=== PATIENT | male | born 1965 | race Caucasian/White ===

== ENCOUNTER 2021-04-18 16:50 | Emergency (ER) | payer BC, SELFPAY ==
--- NOTE | ~2021-04-18 | XR_ITS ---
EXAMINATION: XR abdomen/kub 1V DATE: 04/18/2021 18:02 INDICATION: Diarrhea. Low and mid abdominal pain. TECHNIQUE: A supine view of the abdomen on 2 radiographs was obtained. COMPARISON: CT abdomen and pelvis 02/17/2017 FINDINGS: There are no dilated loops of bowel. There is a small volume of stool in the colon. There i s no visible urolithiasis. IMPRESSION: 1. Normal bowel gas pattern. Reviewed, dictated and finalized at location A. SETTER
--- NOTE | 2021-04-18 17:38 | ED.NAVMDI ---
HPI - Nausea/Vomiting/Diarrhea General Chief complaint: Abdominal Pain Stated complaint: diarrhea Time Seen by Provider: 04/18/21 17:38 Source: patient and RN notes reviewed History of Present Illness HPI Narrative: Patient is a 55-year-old male who presents the urgent care with complaints of diarrhea for the last month and a half. Patient states that worse in the morning and in the evening. Patient states that he is attempted to change his diet and eliminate dairy and gluten and nothing has changed the occurrence of the diarrhea. Patient states that he does have a lot of gas buildup and gets bloated at times. Reports of lower abdominal cramping. Denies of any fevers. Denies of any nausea or vomiting. Patient states he did have a colonoscopy after the age of 49 and everything was clear. No other acute complaints. Denies of bloody diarrhea. No acute distress noted. Patient aware of the plan of care. Some parts of this dictation were generated by voice recognition software and may contain typographical and/or grammatical inaccuracies. Related Data Home Medications Medication Instructions Recorded Confirmed No Home Medications 04/18/21 04/18/21 Allergies Allergy/AdvReac Type Severity Reaction Status Date / Time No Known Allergies Allergy Verified 04/18/21 17:42 Review of Systems Review of Systems: CONSTITUTIONAL: Denies fever, chills, or sweats. EYES: Denies visual changes, redness, or discharge. ENT: Denies rhinorrhea, congestion, sore throat, or otalgia. CARDIOVASCULAR: Denies chest pain, palpitations, or edema. RESPIRATORY: Denies cough or dyspnea. GASTROINTESTINAL: Reports of intermittent diarrhea with lower abdominal pain and bloating without nausea or vomiting GENITOURINARY: Denies dysuria or hematuria. SKIN: Denies rash or itching. MUSCULOSKELETAL: Denies back pain, joint pain, or myalgia. NEUROLOGIC: Denies headache, numbness, or weakness. All other systems reviewed are negative, except as documented in HPI. [facility] Family History Family History (Updated 01/13/14 @ 07:13 by DOCTOR UNKNOWN) Father Hypertension Family history of rheumatoid arthritis Family history of malignant neoplasm of esophagus Patient's father is Grandparent Cerebrovascular accident Family history of heart disease in male family member before age 55 Social History Social History Smoking status: Never smoker Alcohol intake: current Comments At the time of my signature, I reviewed and agree with the nursing past medical, surgical, social, and family history. There is no relevant family history pertinent to the patient complaint. Exam Narrative: GENERAL: This is a well-nourished, well-developed patient, in no apparent distress. HEAD: normocephalic, atraumatic. EYES: PERRL. Sclera clear/white. Vision is grossly intact. EARS: External ears normal NOSE: External nose normal with no obvious nasal discharge, nares without redness, no rhinorrhea. THROAT: Mucous membranes moist NECK: Neck supple CARDIOVASCULAR: Regular rate and rhythm without murmurs, gallops, or rubs. RESPIRATORY: Clear to auscultation. Breath sounds equal bilaterally. No wheezes, rales, or rhonchi. GASTROINTESTINAL: Abdomen soft, mild to moderate lower abdominal tenderness more notable to the left lower, nondistended. Bowel sounds are hyperactive to right upper, hypoactive to lower right and left, near absent to the left upper quadrant. No guarding. SKIN: warm, intact with no suspicious lesions or rash, good texture and turgor. NEURO: awake, alert, and oriented to person, place and time. There were no obvious focal neurologic abnormalities. EXTREMITIES: No clubbing, cyanosis, or edema. Course Vital Signs Vital signs: Vital Signs Temperature 97.3 F L 04/18/21 17:45 Pulse Rate 58 L 04/18/21 17:45 Respiratory Rate 58 H 04/18/21 17:45 Blood Pressure 124/96 H 04/18/21 17:45 Pulse Oximetry 100 04/18/21 17:45 Tem
[2021-04-18 17:45] VITALS: BP 124/96; PULSE 58; RESP 58; TEMP 36.3; O2SAT 100
== END 2021-04-18 18:18 | disposition home or self-care (01) ==
PROVIDERS: Emergency Provider Nurse Practitioner Family
DX: R19.7 Diarrhea, unspecified (principal)
CPT/HCPCS: 74018; 99213; G0463

== ENCOUNTER 2021-05-04 09:00 | Outpatient (CLI) | payer BC, SELFPAY ==
--- NOTE | ~2021-05-04 | CT_ITS ---
EXAMINATION: CT abdomen pelvis w con INDICATION: Lower abdominal pain and weight loss TECHNIQUE: Computed tomographic images of the abdomen and pelvis were obtained after the administrati on of 100 cc of Omnipaque 350 intravenous contrast. The dose-length product (DLP) was 692.26 mGy-cm. Automated exposure control and iterative reconstruction technique were employed. COMPARISON: 02/17/2017 FINDINGS: Minimal dependent atelectasis is present in the lung bases. The heart size is normal. Small nodules of the right lower lobe are stable and consistent with old granulomatous disease. There is a small sliding hiatal hernia. The liver, spleen, pancreas, gallbladder, and adrenal glands are normal . There is mild chronic atrophy of the right kidney. No pathologically enlarged abdominal or pelvic l ymph nodes are identified. There is no free intraperitoneal gas or evidence of bowel obstruction. The appendix is normal. There is a chronic unchanged sclerotic lesion of the left inferior pubic ramus, consistent with a bone island. A tiny left inguinal hernia containing fat is noted. There is mild lum bar spondylosis. IMPRESSION: 1. No CT correlate for the patient's symptoms. Reviewed, dictated and finalized at location A. F [employer]ICER
[2021-05-04 09:28] LABS: Estimated Glomerular Filt Rate 52
== END 2021-05-04 09:01 | disposition home or self-care (01) ==
PROVIDERS: PCP Nurse Practitioner; Visit Provider Nurse Practitioner
DX: R10.30 Lower abdominal pain, unspecified (principal); R63.4 Abnormal weight loss; R19.7 Diarrhea, unspecified
CPT/HCPCS: 74177; Q9967

== ENCOUNTER 2021-06-08 02:00 | Day surgery (SDC) | payer BC, SELFPAY ==
[2021-05-29 10:52] VITALS: BMI 25.9
--- NOTE | 2021-06-07 13:49 | WPDANESEPPF ---
Anes - Initial Pre Proc Eval Procedure: Operation Date: 06/08/21 12:30 Proposed Procedures p Colonoscopy - Melchor Armstrong MD Date/Time: 06/07/21 13:49 Surgeon: Melchor Armstrong MD Pre Op Diagnosis: abdominal pain, weight loss, diarrhea Patient Data Age: 56 Gender: M Height: 1.98 m Weight: 102 kg Allergies Allergy/AdvReac Type Severity Reaction Status Date / Time No Known Allergies Allergy Verified 06/08/21 11:16 Home Medications Medication Instructions Recorded Confirmed Type atorvastatin 10 mg PO QPM 05/29/21 06/08/21 History lisinopril 5 mg PO QPM 05/29/21 06/08/21 History Patient hx anesthesia problems: none Family hx anesthesia problems: none Results Review: All pre-operative results and documents have been reviewed as part of the pre-operative evaluation. [facility] Past Medical History Medical History (Updated 06/08/21 @ 11:11 by Melchor Armstrong MD) GERD (gastroesophageal reflux disease) Hyperlipidemia Hypertension IBS (irritable bowel syndrome) Family History Family History (Updated 01/13/14 @ 07:13 by DOCTOR UNKNOWN) Father Hypertension Family history of rheumatoid arthritis Family history of malignant neoplasm of esophagus Patient's father is Grandparent Cerebrovascular accident Family history of heart disease in male family member before age 55 Social History Social History Smoking status: Never smoker Alcohol intake: current Substance use: never Substance use type: does not use Living arrangements: with family Spiritual care concerns: No Anes - Eval Final PreProcedure Day of Procedure 06/07/21 13:49 Patient weight: overweight Heart: regular rate and rhythm Lungs: clear to auscultation and normal air movement Airway: Mallampati scale class II Neurological: alert and oriented Last oral intake: >/= 8 hours ASA classification: II Emergent: no Anesthetic plan: proceed Anesthesia type and monitoring: general GIVS and standard monitoring Results Review: All pre-operative results and documents have been reviewed as part of the pre-operative evaluation. Informed Consent: The patient's anesthetic plan and its attendant risks and benefits were discussed with the patient/family/POA. Questions were solicited and answers provided to the satisfaction of the patient/family/POA.
[2021-06-08 11:05] VITALS: BP 132/85; PULSE 84; RESP 16; TEMP 35.7; O2SAT 99; BMI 25.4
--- NOTE | 2021-06-08 11:09 | P.CONGI_ITS ---
Assessment and Plan Assessment and plan (1) Change in bowel habit: Code(s): R19.4 - Change in bowel habit Status: Acute Assessment and Plan: Patient has had a change in bowel habits with 2 months of diarrhea associated with abdominal pain and weight loss. This begun to improve. Plan for fiber in the diet for presumed irritable bowel syndrome. Colonoscopy will be performed to evaluate more thoroughly. GI Consult Note Consult date/time: 06/08/21 11:09 HPI: Juan Haskins is a 56 year old male Presents for colonoscopy. Patient reports recent bout of vague abdominal pain and diarrhea that lasted for 2 months. He had weight loss during this interval of time. He denies any significant bleeding. He has had no fevers. His diarrhea has begun to improve over the last 3 weeks. He now has on a high-fiber diet. He denies any recent travel. Family history is noncontributory. Patient has a distant history of anal fissure. Review of Systems Review of Systems: All systems reviewed & are unremarkable except as noted in HPI and below PMFSH Past Medical History Medical History (Updated 06/08/21 @ 11:11 by Melchor Armstrong MD) GERD (gastroesophageal reflux disease) Hyperlipidemia Hypertension IBS (irritable bowel syndrome) Family History Family History (Updated 01/13/14 @ 07:13 by DOCTOR UNKNOWN) Father Hypertension Family history of rheumatoid arthritis Family history of malignant neoplasm of esophagus Patient's father is Grandparent Cerebrovascular accident Family history of heart disease in male family member before age 55 Social History Social History Smoking status: Never smoker Alcohol intake: current Substance use: never Substance use type: does not use Living arrangements: with family Spiritual care concerns: No Meds Home Medications and Allergies Home Medications Medication Instructions Recorded Confirmed Type atorvastatin 10 mg PO QPM 05/29/21 05/29/21 History lisinopril 5 mg PO QPM 05/29/21 05/29/21 History Allergies Allergy/AdvReac Type Severity Reaction Status Date / Time No Known Allergies Allergy Verified 05/29/21 10:53 Exam Narrative: Physical exam reveals patient to be alert. Vital signs stable. HEENT exam is unremarkable. Patient is anicteric. Lungs are clear to auscultation and percussion. Heart is without murmur or extra sounds. Abdomi nal exam bowel sounds are present soft nontender with no organomegaly. Digital external rectal exam normal.
[2021-06-08] MEDS: LACTATED RINGERS 1,000 ML 150 ML IV CONT (11:28)
[2021-06-08 11:56] VITALS: BP 119/84; PULSE 73; RESP 12; O2SAT 96
[2021-06-08 12:06] VITALS: BP 115/76; PULSE 74; RESP 19; O2SAT 99
[2021-06-08 12:16] VITALS: BP 125/81; PULSE 75; RESP 23; O2SAT 100
== END 2021-06-08 12:31 | disposition home or self-care (01) ==
PROVIDERS: PCP Nurse Practitioner; Visit Provider Internal Medicine Gastroenterology
PROC: 0DJD8ZZ Inspection of Lower Intestinal Tract, Via Natural or Artificial Opening Endoscopic (ICD-10-PCS; CPT 45378; principal; 2021-06-08 12:30)
DX: Z12.11 Encounter for screening for malignant neoplasm of colon (principal); K58.0 Irritable bowel syndrome with diarrhea; K64.8 Other hemorrhoids; I10 Essential (primary) hypertension; E78.5 Hyperlipidemia, unspecified; K21.9 Gastro-esophageal reflux disease without esophagitis
CPT/HCPCS: 45378; J2704; J7120